=== PATIENT | female | born 1950 | race Caucasian/White ===

== ENCOUNTER → 2023-10-10 13:06 | Outpatient (REF) | payer OTHER, SELFPAY | LOC: RAD 13:06 | PROVIDERS: ATTENDING PHYSICIAN Nurse Practitioner | DX: N95.1 Menopausal and female climacteric states (principal); M25.551 Pain in right hip; M81.0 Age-related osteoporosis without current pathological fracture | CPT/HCPCS: 73502; 77080 ==

== ENCOUNTER 2024-08-02 16:38 | Emergency (ER) | payer OTHER, SELFPAY ==
[2024-08-02 16:42] VITALS: BP 152/71
--- NOTE | 2024-08-02 17:39 | ED.GENMED ---
History of Present Illness
General
Chief Complaint: Head Injury
Source: patient
Time Seen by Provider: 08/02/24 17:21
History of Present Illness
History of Present Illness:
74-year-old female with past medical history of hypertension presenting to the emergency department after she was going out to dinner, stumbled and fell backwards striking the back of her head, since that time has had persistent nausea. Patient
woke up with the same symptoms today which is what prompted her to come to the ER for further evaluation. There was no LOC, no vomiting, no vision changes, no extremity related injury. Patient does note a very subtle headache. She did not take
anything for the symptoms prior to arrival.
Past History
Past History
ED Past Medical History: HTN
ED Past Surgical History: Appendectomy
Social History
Tobacco: Non-smoker
Alcohol: None
Drug: None
Personal:
Living: with family
Review of Systems
Review of Systems
All Other Systems: ROS reviewed and negative except as documented in HPI and ROS
Phy Exam
Physical Exam
Physical Exam:
GENERAL: Alert , in no apparent distress
EYE: conjunctiva clear, pupils 4 mm bilateral no midline tenderness
Head: Normocephalic atraumatic
NECK: Supple,
ENT: mmm.
LUNGS: no acute respiratory distress
NEUROLOGICAL: Alert and oriented, ambulates with steady
SKIN: Warm and dry, skin intact.
MUSCULOSKELETAL: well perfused.
PSYCH: Normal and appropriate interaction.
Scores
Heart Failure Risk
Heart Failure Risk Score: Not Applicable
Heart Score for Chest Pain Patients
STEMI patient?: Not applicable
Withdrawal Assessment of Alcohol
Withdrawal Assessment Completed?: Not applicable
Course
Orders/Labs/Results
Orders:
Orders
08/02/24 16:40
CT Head W/o Iv Contrast Urgent
Comment:
Reason For Exam: head injury, nausea
Vital Signs
Initial and Last Documented VS:
Initial Vital Signs
Temp Pulse Resp BP Pulse Ox
98.8 F 85 18 152/71 99
08/02/24 16:42 08/02/24 16:42 08/02/24 16:42 08/02/24 16:42 08/02/24 16:42
Last Documented Vital Signs
Temp Pulse Resp BP Pulse Ox
98.8 F 85 18 152/71 99
08/02/24 16:42 08/02/24 16:42 08/02/24 16:42 08/02/24 16:42 08/02/24 16:42
MDM/Problems Addressed
Differential Diagnosis Includes:
Contusion, concussion, minimal concern for intracranial bleeding
MDM/Problems Addressed:
74-year-old female presenting the ER for evaluation of head injury that occurred last night, has had some nausea persistently since.. CT of the head was ordered and ultimately does not show any acute pathology. Suspect contusion/concussion to be
most likely diagnosis. Offered Zofran for nausea however patient states she would only like a prescription for this sent to her pharmacy, denying anything currently. Aware of return precautions to the ER. Otherwise stable for discharge.
*Pulse Oximetry
Patient hypoxic: no
*Critical Care Note
Total Time (30-74mins, 75-104mins- exclusive of procedures): Not Applicable
ED Attending Note
-
Portions of this chart may have been created with voice recognition software.� Occasional wrong word or��sound alike� substitutions may have occurred due to the inherent limitations of voice recognition software.
Discharge Plan
Departure
Patient Disposition: Home (Routine Discharge)
Date of Disposition: 08/02/24
Time of Disposition: 17:39
Patient with high blood pressure during this ER visit?: Yes
Discharge Problem:
Concussion
Instructions: Concussion, Adult (DC)
Prescriptions:
New
ondansetron 4 mg tablet,disintegrating
4 mg PO TIDPRN PRN (Reason: nausea/vomiting) Qty: 6 0RF
No Action
No Current Medications
prednisone 10 MG tablet
10 mg PO .TAPER Qty: 42 0RF
amoxicillin-pot clavulanate 875 MG/125 MG tablet
1 tab PO Q12 Qty: 20 0RF
Interventions
Interventions:
*Risk Screen - Suicide Last Done: 08/02/24 16:44
*General Assessment Last Done: 08/02/24 16:44
*Neglect/Abuse Screening Last Done: 08/02/24 16:44
*ED- Fall Risk Assessment Last Done: 08/02/24 17:37
*ED COVID-19 Vaccine History Last Done: 08/02/24 16:44
*Nursing Disposition Last Done: 08/02/24 17:49
ED- Neurological Assessment Last Done: 08/02/24 17:36
ED-Skin Assessment Last Done: 08/02/24 17:36
Discharge Date and Time
Discharge Date/Time: 08/02/24 17:53
Print Language: SETSWA[place]
== END 2024-08-02 17:53 | disposition home or self-care (01) ==
LOC: EMR 16:38
PROVIDERS: EMERGENCY PHYSICIAN Emergency Medicine; FAMILY PHYSICIAN Nurse Practitioner
DX: S06.0X0A Concussion without loss of consciousness, initial encounter (principal); W01.10XA Fall on same level from slipping, tripping and stumbling with subsequent striking against unspecified object, initial encounter; I10 Essential (primary) hypertension
CPT/HCPCS: 99284; 70450

== ENCOUNTER 2024-11-22 12:29 | Emergency (ER) | payer OTHER, SELFPAY ==
[2024-11-22 12:30] VITALS: BP 142/68
[2024-11-22 12:57] VITALS: BMI 26.2
--- NOTE | 2024-11-22 13:53 | ED.GENMED ---
History of Present Illness
General
Chief Complaint: Fall
Source: patient
Time Seen by Provider: 11/22/24 12:58
History of Present Illness
History of Present Illness:
74-year-old female with past medical history of hypertension presenting to the ER for evaluation after she excellently tripped and fell striking the back of her head against a bathtub, small less than 1 cm laceration sustained to the mid occiput.
No LOC, no vomiting, minimal headache, denies anticoagulant use. No other injuries were sustained.
Past History
Past History
ED Past Medical History: HTN
ED Past Surgical History: Appendectomy
Social History
Tobacco: Non-smoker
Alcohol: None
Drug: None
Personal:
Living: with family
Review of Systems
Review of Systems
All Other Systems: ROS reviewed and negative except as documented in HPI and ROS
Phy Exam
Physical Exam
Physical Exam:
GENERAL: Alert , in no apparent distress
HEAD: Punctate laceration mid occiput but no active bleeding but dried blood surrounding 9 mm
EYE: conjunctiva clear
NECK: Supple, no midline ttp
ENT: o/p clr, mmm.
CARDIAC: Regular rate and rhythm
LUNGS: Clear breath sounds bilaterally, no acute respiratory distress, no wheezes/rales/rhonchi
NEUROLOGICAL: Alert and oriented
SKIN: Warm and dry, skin intact.
MUSCULOSKELETAL: well perfused.
PSYCH: Normal and appropriate interaction.
Scores
Heart Failure Risk
Heart Failure Risk Score: Not Applicable
Heart Score for Chest Pain Patients
STEMI patient?: Not applicable
Withdrawal Assessment of Alcohol
Withdrawal Assessment Completed?: Not applicable
Course
Orders/Labs/Results
Orders:
Orders
11/22/24 13:[address] [CT Head W/o Iv Contrast] Urgent
Comment:
Reason For Exam: fall/LAC
Vital Signs
Initial and Last Documented VS:
Initial Vital Signs
Temp Pulse Resp BP Pulse Ox
98.4 F 87 17 142/68 99
11/22/24 12:30 11/22/24 12:30 11/22/24 12:30 11/22/24 12:30 11/22/24 12:30
Last Documented Vital Signs
Temp Pulse Resp BP Pulse Ox
98.4 F 87 17 142/68 99
11/22/24 12:30 11/22/24 12:30 11/22/24 12:30 11/22/24 12:30 11/22/24 13:58
Procedures
Laceration Closure
Posterior Scalp:
Status of Wound: clean
Size of Wound in cm: 0.9
Description of Wound Edges: sharp
Preparation: cleaned with saline
Type of Closure: single layer closure
Skin Closure Material: skin lauren
Number of sutures: 1
MDM/Problems Addressed
Differential Diagnosis Includes:
Contusion
Concussion
Intracranial bleeding
Superficial laceration
Cervical spine injury
MDM/Problems Addressed:
74-year-old female presenting the ER for evaluation after an accidental trip and fall resulting in mild head injury. Superficial laceration noted. Will repair with staple. Pending CT scan. Anticipate discharge home following.
*Pulse Oximetry
SaO2: 99
Oxygen Mode of Delivery: Room air
Patient hypoxic: no
*Critical Care Note
Total Time (30-74mins, 75-104mins- exclusive of procedures): Not Applicable
Patient Management
Escalation/DeEscalation of care consider admission/obs:
CT unremarkable. Patient stable for discharge home
ED Attending Note
-
Portions of this chart may have been created with voice recognition software.� Occasional wrong word or��sound alike� substitutions may have occurred due to the inherent limitations of voice recognition software.
Discharge Plan
Departure
Patient Disposition: Home (Routine Discharge)
Date of Disposition: 11/22/24
Time of Disposition: 15:58
Patient with high blood pressure during this ER visit?: Yes
Discharge Problem:
Head injury
Instructions: Head Injury in Adults (DC)
Prescriptions:
No Action
No Current Medications
prednisone 10 MG tablet
10 mg PO .TAPER Qty: 42 0RF
amoxicillin-pot clavulanate 875 MG/125 MG tablet
1 tab PO Q12 Qty: 20 0RF
ondansetron 4 mg tablet,disintegrating
4 mg PO TIDPRN PRN (Reason: nausea/vomiting) Qty: 6 0RF
Referrals:
Kaity Burgess CRNP [Family Provider, Family Practice]
Activity Restrictions/Additional Instructions:
Suture removal in 5 days
Interventions
Interventions:
*Risk Screen - Suicide Last Done: 11/22/24 12:32
*General Assessment Last Done: 11/22/24 12:32
*Neglect/Abuse Screening Last Done: 11/22/24 12:32
*ED- Fall Risk Assessment Last Done: 11/22/24 16:02
*ED COVID-19 Vaccine History Last Done: 11/22/24 12:32
*Nursing Disposition Last Done: 11/22/24 16:02
ED-Musculoskeletal Assessment Last Done: 11/22/24 12:58
ED- Neurological Assessment Last Done: 11/22/24 12:58
ED-Skin Assessment Last Done: 11/22/24 12:58
Discharge Date and Time
Discharge Date/Time: 11/22/24 16:02
Print Language: FRISIAN
== END 2024-11-22 16:02 | disposition home or self-care (01) ==
LOC: EMR 12:29
PROVIDERS: EMERGENCY PHYSICIAN Emergency Medicine; FAMILY PHYSICIAN Nurse Practitioner
DX: S09.90XA Unspecified injury of head, initial encounter (principal); S01.01XA Laceration without foreign body of scalp, initial encounter; I10 Essential (primary) hypertension; W01.198A Fall on same level from slipping, tripping and stumbling with subsequent striking against other object, initial encounter; Y92.002 Bathroom of unspecified non-institutional (private) residence as the place of occurrence of the external cause
CPT/HCPCS: 99284; 12001; 70450